=== PATIENT | female | born 2000 | race Caucasian/White ===

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

== ENCOUNTER → 2021-03-04 | Outpatient (CLI) | payer OTHER ==
--- NOTE | 2021-03-04 12:08 | USB ---
Reason for exam: clinical finding. History: Family history of breast cancer in maternal aunt at age 20. Indicated problem(s): pain in the left breast. Physical Findings: Nurse Summary: Patient states started Depo shot November 2019, developed left breast lump bruising which went away, not left breast pain x 2 months, upper outer quadrant, constant, sharp (nurse TM). US Breast LT Left complete breast ultrasound includes all four quadrants, the retroareolar region and axilla. Finding demonstrates no cystic or solid lesion seen. These results were verbally communicated with the patient and result sheet given to the patient on 03/04/21. ASSESSMENT: Negative, BI-RAD 1 RECOMMENDATION: Routine screening mammogram of both breasts at age 41. Manage patient on a clinical basis.
== END | disposition home or self-care (01) ==
LOC: RADUSWWP 09:30
PROVIDERS: ATTEND Family Medicine
DX: N64.4 Mastodynia (principal)

== ENCOUNTER 2021-07-28 16:06 | Emergency (ER) | payer OTHER ==
[2021-07-28 16:21] VITALS: BP 117/75; PULSE 88; RESP 18; TEMP 98.3
[2021-07-28 17:08] LABS: Appearance,Urine Cloudy (Clear); Bacteria,Urine Rare /hpf; Bilirubin,Urine Negative (Negative); Blood,Urine Negative (Negative); Calcium Oxalate Crystals,Urine Moderate /hpf; Color,Urine Yellow; Glucose,Urine (UA) Negative (Negative); Ketones,Urine Negative (Negative); Leukocyte Esterase,Urine Small (Negative); Mucus,Urine Rare /hpf; Nitrite,Urine Negative (Negative); Protein,Urine Negative (Negative); RBC,Urine 2 /hpf (0-5); Specific Gravity,Urine 1.022 (1.001-1.035); Squamous Epithelial Cell,Urine 8 /hpf (0-4); Urobilinogen,Urine <2.0 mg/dL (<2.0); WBC,Urine 5 /hpf (0-5)
[2021-07-28] MEDS ORDERED: CEPHALEXIN 500 MG CAP PO STA (17:18)
--- NOTE | 2021-07-28 17:29 | ED ---
General Adult HPI - General Chief complaint: Fall Stated complaint: 17 wks fall/abd pain Time Seen by Provider: 07/28/21 16:31 Source: patient, RN notes reviewed, old records reviewed Mode of arrival: ambulatory Limitations: no limitations - History of Present Illness Initial comments: Patient is a 21-year-old female with past medical history remarkable for being approximately 17 weeks presents emergency Department after a fall yesterday. Patient states that she fell at home, did not hit her head. She no injuries at time. She was a little sore in the left side of her abdomen, there is reproducible on palpation mostly along the wall. She states this is overall improving, however she is concerned regarding her baby's health. She still feeling the baby move. She denies any vaginal discharge or bleeding. Endorses some dysuria but denies hematuria. Denies any chest pain, shortness breath, lightheadedness, weakness. She is no other acute complaints at this time. She states she currently only has pain when she urinates, describes it as dysuria. She is receiving care and is on vitamins. She is no other acute complaint at this time. She is seeking an ultrasound to ensure that her baby is okay. - Related Data Home Medications Medication Instructions Recorded Confirmed Cholecalciferol [Vitamin D3 (25 50 mcg PO DAILY 07/28/21 07/28/21 Mcg = 1000 Iu)] Oyi-Zkxd-Teboo Acid 1 cap PO DAILY 07/28/21 07/28/21 [-U Capsule (formulary)] Previous Rx's Medication Instructions Recorded Cephalexin [Keflex] 500 mg PO Q12HR 5 Days #10 cap 07/28/21 Allergies Allergy/AdvReac Type Severity Reaction Status Date / Time ketorolac [From Toradol] Allergy Unknown Verified 07/28/21 16:59 haloperidol [From Haldol] AdvReac pt states Verified 07/28/21 16:59 "seizure like activity" Review of Systems ROS Statement: Those systems with pertinent positive or pertinent negative responses have been documented in the HPI. Review of Systems: CONST: Denies fever EYES: Denies blurry vision ENT: Denies nasal congestion C/V: Denies Chest pain RESP: Denies shortness of breath GI: Denies abdominal pain : Endorses dysuria SKIN: Denies rash. MSK: Denies joint pain. NEURO: Denies headache ROS Other: All systems not noted in ROS Statement are negative. Past Medical History Past Medical History: No Reported History Additional Past Medical History / Comment(s): ADHD History of Any Multi-Drug Resistant Organisms: None Reported Past Surgical History: No Surgical Hx Reported Additional Past Anesthesia/Blood Transfusion Reaction / Comment(s): NEVER HAD Past Psychological History: ADD/ADHD Smoking Status: Current every day smoker Past Alcohol Use History: None Reported Past Drug Use History: None Reported - Past Family History Father History Unknown: Yes Family Medical History: Blood Disorder, Coronary Artery Disease (CAD), Hypertension, Osteoarthritis (OA), Seizure Disorder Mother Family Medical History: Hypertension Additional Family Medical History / Comment(s): "hole in uterus" General Exam - General Exam Comments Initial Comments: General: Appears in no acute distress. HEAD: Normal with no signs of head trauma. EYES: PERRLA, EOMI, conjunctiva normal, no discharge. ENT: Hearing grossly intact, normal oropharynx. RESPIRATORY: Clear breath sounds bilaterally. No wheezes, rales, or rhonchi. C/V: Regular rate and rhythm. S1 and S2 auscultated, no edema, peripheral pulses 2+ and intact throughout ABD: Abd is soft, nontender, nondistended EXT: Normal range of motion, no obvious deformity SKIN: No rashes or lesions observed on exposed skin. NEURO: Alert and oriented 4. Limitations: no limitations Course Vital Signs 07/28/21 16:17 Temperature 98.3 F Pulse Rate 88 Respiratory 18 Rate Blood Pressure 117/75 O2 Sat by Pulse 97 Oximetry Procedures - Procedures Initial comment: On encounter ultrasound was obtained by myself. Transabdominal pelvic ultrasound was done. Was remarkable for definitive intrauterine . Gestational age is not calculated. heart rate is 161 bpm and within normal limits. Positive movements. No free intra-abdominal fluid is appreciated. Ovaries are not visualized. Images were not printed due to dysfunction with the ultrasound printer. Medical Decision Making - Medical Decision Making Based on the patient's presentation and physical exam, I believe she had an atraumatic fall yesterday, however is complaining of dysuria and is requesting evaluation of her child, she is 17 weeks . She has been feeling movements, however we will obtain a bedside ultrasound performed by myself. We'll also obtain a urinalysis that she is having dysuria. Patient was in agreement this plan. She is no vaginal bleeding or other symptoms at this time and I do not believe that further imaging or laboratory studies are associated. She was in agreement this plan. Patient's urinalysis revealed a small amount of leukocyte esterase as well as some WBCs and it is cloudy. It is a contaminated catch but she is symptomatic therefore we will treat it. She'll be given 500 mg of Keflex here in the department and a prescription for Keflex 500 mg twice a day. Tyjud-qb-zcwe ultrasound was performed by myself. Transabdominal ultrasound of the uterus was completed and revealed a definitive intrauterine with a heart rate of 161 bpm. The ultrasound was not working for printing copies of my images. Should the images with the patient she was really. At this time patient is still asymptomatic. She received her antibiotic. I believe it is safe to be discharged home with close follow-up with her CODING COMPLIANCE MANAGER. She was in agreement this plan. I will provide the patient with a prescription for Keflex 500 mg twice a day for 5 days. I instructed the patient to follow up with their PCP in the next 3 days. I explained that the patient should return to the emergency department if they experience any worsening symptoms. Strict return precautions were discussed with the patient. The patient expressed understanding of these instructions. I answered all questions that the patient had. The patient was discharged home in good condition with their prescriptions and follow up information. - Lab Data Lab Results 07/28/21 Range/Units 16:49 Urine Color Yellow Urine Appearance Cloudy H (Clear) Urine pH 6.0 (5.0-8.0) Ur Specific [place] 1.022 (1.001-1.035) Urine Protein Negative (Negative) Urine Glucose (UA) Negative (Negative) Urine Ketones Negative (Negative) Urine Blood Negative (Negative) Urine Nitrite Negative (Negative) Urine Bilirubin Negative (Negative) Urine Urobilinogen <2.0 (<2.0) mg/dL Ur Leukocyte Esterase Small H (Negative) Urine RBC 2 (0-5) /hpf Urine WBC 5 (0-5) /hpf Ur Squamous Epith Cells 8 H (0-4) /hpf Calcium Oxalate Crystal Moderate H (None) /hpf Urine Bacteria Rare H (None) /hpf Urine Mucus Rare H (None) /hpf Disposition Clinical Impression: UTI (urinary tract infection), Musculoskeletal pain Disposition: HOME SELF-CARE Condition: Good Prescriptions: Cephalexin [Keflex] 500 mg PO Q12HR 5 Days #10 cap Is patient prescribed a controlled substance at d/c from ED?: No Referrals: Patricia Almeida MD [Primary Care Provider] - 1-2 days
== END 2021-07-28 17:45 | disposition home or self-care (01) ==
LOC: EC 16:06
DX: O23.42 Unspecified infection of urinary tract in pregnancy, second trimester (principal); O99.332 Smoking (tobacco) complicating pregnancy, second trimester; F17.200 Nicotine dependence, unspecified, uncomplicated; Z3A.17 17 weeks gestation of pregnancy; Z82.49 Family history of ischemic heart disease and other diseases of the circulatory system; Z88.8 Allergy status to other drugs, medicaments and biological substances; W19.XXXA Unspecified fall, initial encounter; Y92.009 Unspecified place in unspecified non-institutional (private) residence as the place of occurrence of the external cause
CPT/HCPCS: 81001; 99284

== ENCOUNTER 2021-10-24 16:02 | Emergency (ER) | payer OTHER ==
--- NOTE | 2021-10-24 17:32 | ED ---
General Adult HPI - General Stated complaint: chest pain, sore throat - History of Present Illness Initial comments: Arabella is a 21yo F 30w gestation who presents to the Emergency Department today with a complaint of sore throat, cough and chest pain. Symptoms began when she woke up this morning. Patient reports pain 6 out of 10 in the chest, throughout the entire chest. Patient was vaccinated for COVID. She does smoke cigarettes. - Related Data Home Medications Medication Instructions Recorded Confirmed Cholecalciferol [Vitamin D3 (25 50 mcg PO DAILY 07/28/21 07/28/21 Mcg = 1000 Iu)] Ecl-Bwmo-Rpyjh Acid 1 cap PO DAILY 07/28/21 07/28/21 [-U Capsule (formulary)] Previous Rx's Medication Instructions Recorded Cephalexin [Keflex] 500 mg PO Q12HR 5 Days #10 cap 07/28/21 Allergies Allergy/AdvReac Type Severity Reaction Status Date / Time ketorolac [From Toradol] Allergy Unknown Verified 10/24/21 17:31 haloperidol [From Haldol] AdvReac pt states Verified 10/24/21 17:31 "seizure like activity" Review of Systems ROS Statement: Those systems with pertinent positive or pertinent negative responses have been documented in the HPI. ROS Other: All systems not noted in ROS Statement are negative. Past Medical History Past Medical History: No Reported History Additional Past Medical History / Comment(s): ADHD History of Any Multi-Drug Resistant Organisms: None Reported Past Surgical History: No Surgical Hx Reported Additional Past Anesthesia/Blood Transfusion Reaction / Comment(s): NEVER HAD Past Psychological History: ADD/ADHD Smoking Status: Current every day smoker Past Alcohol Use History: None Reported Past Drug Use History: None Reported - Past Family History Father History Unknown: Yes Family Medical History: Blood Disorder, Coronary Artery Disease (CAD), Hypertension, Osteoarthritis (OA), Seizure Disorder Mother Family Medical History: Hypertension Additional Family Medical History / Comment(s): "hole in uterus" General Exam - General Exam Comments Initial Comments: Physical Exam GENERAL: Patient is well-developed and well-nourished. Patient is nontoxic and well-hydrated and is in no distress. HENT: Normocephalic, Atraumatic. Throat is nonerythematous there is no exudates EYES: PERRL, EOMI PULMONARY: Unlabored respirations. Clear to auscultation bilaterally CARDIOVASCULAR: RRR Warm and well perfused extremities ABDOMEN: Gravid abdomen SKIN: No rashes or bruising : Deferred NEUROLOGIC: Alert and oriented Normal speech Normal gait MUSCULOSKELETAL: Moving all extremities with no apparent injury PSYCHIATRIC: No SI/HI Course Vital Signs 10/24/21 17:31 Temperature 98.7 F Pulse Rate 83 Respiratory 20 Rate Blood Pressure 123/61 O2 Sat by Pulse 97 Oximetry EKG Findings - EKG Comments: EKG Findings:: EKG was obtained due to complaint of chest pressure, EKG was obtained 1814 rate is 84 rhythm is sinus there is normal axis, normal intervals, OK 112, QRS 86, QTC is 425 there are no acute ST elevations or depressions there is no evidence of acute ischemia or infarction. Of note and as one every 3 T3 pattern was observed and could be related to . Medical Decision Making - Medical Decision Making Patient was seen and evaluated in the triage bay, patient was tested for COVID- 19 and tested negative, EKG was nonischemic, lung sounds were clear and the patient was not hypoxic or tachycardic therefore due to we chose not to pursue a chest x-ray. Patient is waiting in the emergency room waiting room when she returned to triage bay to say she can no longer wait and would like to be discharged. Patient did agree testing for influenza but otherwise was unwilling to stay in the emergency department. At this time patient has stable vital signs, no tachycardia and no hypoxia no fever and is stable for discharge home. - Lab Data Lab Results 10/24/21 Range/Units 17:35 Coronavirus (PCR) Not Detected (Not Detectd) Disposition Clinical Impression: Viral URI with cough Disposition: HOME SELF-CARE Condition: Stable Additional Instructions: Return to the ER for any worsening symptoms Is patient prescribed a controlled substance at d/c from ED?: No Referrals: Guy Carpio DO [Primary Care Provider] - 1-2 days
[2021-10-24 17:35] VITALS: BP 123/61; PULSE 83; RESP 20; TEMP 98.7
== END 2021-10-24 19:04 | disposition home or self-care (01) ==
LOC: EC 16:02
DX: O99.413 Diseases of the circulatory system complicating pregnancy, third trimester (principal); O99.513 Diseases of the respiratory system complicating pregnancy, third trimester; R07.9 Chest pain, unspecified; J06.9 Acute upper respiratory infection, unspecified; F90.9 Attention-deficit hyperactivity disorder, unspecified type; F17.200 Nicotine dependence, unspecified, uncomplicated; Z3A.30 30 weeks gestation of pregnancy; Z88.1 Allergy status to other antibiotic agents; Z20.822 Contact with and (suspected) exposure to COVID-19
CPT/HCPCS: 87502; 87635; 93005; 99285

== ENCOUNTER 2022-01-06 03:09 | Inpatient (IN) | payer OTHER ==
[2022-01-06] MEDS ORDERED: METHYLERGONOVINE 0.2 MG/ML 1 ML AMP IM PRN (03:58)
[2022-01-06] MEDS ORDERED: CARBOPROST TROMETHAMINE 250 MCG/ML 1 ML AMP IM PRN (03:58)
[2022-01-06] MEDS ORDERED: LIDOCAINE 1% (PF) 10 MG/ML (30 ML SDV) SQ PRN (03:58)
[2022-01-06] MEDS ORDERED: OXYTOCIN 10 UNIT/ML 1 ML VIAL IM PRN (03:58)
[2022-01-06] MEDS ORDERED: TERBUTALINE 1 MG/ML VIAL SQ PRN (03:58)
[2022-01-06] MEDS ORDERED: LACTATED RINGERS 1,000 ML IV SCH ×4 (04:00→10:15)
[2022-01-06] MEDS ORDERED: PENICILLIN G POTASSIUM 5,000,000 UNIT in DEXTROSE 5% IN WATER 100 ML IVPB ONE ×2 (04:00)
[2022-01-06 04:43] LABS: Glucose,Whole Blood 126 mg/dL (75-99)
[2022-01-06 04:51] LABS: Basophils # (A) 0.1 k/uL (0-0.2); Basophils % (A) 0 %; Eosinophils % (A) 0 %; HCT 38.9 % (34.0-46.0); HGB 13.2 gm/dL (11.4-16.0); Lymphocytes % (A) 6 %; MCH 32.9 pg (25.0-35.0); MCHC 33.8 g/dL (31.0-37.0); MCV 97.2 fL (80.0-100.0); Mean Platelet Volume 8.8; Monocytes # (A) 0.4 k/uL (0-1.0); Monocytes % (A) 3 %; Neutrophils # (A) 14.7 k/uL (1.3-7.7); Neutrophils % (A) 90 %; Platelet Count 204 k/uL (150-450); RBC 4.01 m/uL (3.80-5.40); RDW 13.2 % (11.5-15.5); WBC 16.3 k/uL (4.0-11.0)
[2022-01-06 05:10] LABS: Amphetamine Screen,Urine Not Detected (NotDetected); Barbiturate Screen,Urine Not Detected (NotDetected); Benzodiazepines Screen,Urine Not Detected (NotDetected); Cocaine Screen,Urine Not Detected (NotDetected); Methadone Screen, Urine Not Detected (NotDetected); Opiate Screen,Urine Not Detected (NotDetected); Oxycodone Screen, Urine Not Detected (NotDetected); Phencyclidine Screen,Urine Not Detected (NotDetected); Tricyclic Antidepressant,Urine Not Detected (NotDetected); Urn Cannabinoid Scrn Detected (NotDetected)
[2022-01-06] MEDS ORDERED: fentaNYL (PF) 50 MCG/ML 5 ML AMP ONE (05:36)
[2022-01-06] MEDS ORDERED: SODIUM CHLORIDE 0.9% 100 ML BAG ONE (05:36)
[2022-01-06] MEDS ORDERED: ROPIVACAINE 5MG/ML 20ML VIAL ONE (05:36)
--- NOTE | 2022-01-06 06:49 | P.HPOB ---
History of Present Illness H&P Date: 01/06/22 Chief Complaint: Spontaneous rupture of membranes at 40-4/7 This is a 29-year-old 2 para 0010 woman with a due date of 01/02/2022 based on first trimester ultrasound who presents post dates with spontaneous rupture of membranes and active labor. She receives care at [facility] and was seen by them a couple of hours prior to presentation here and was sent home. She presents to this hospital having spontaneous rupture of membranes at home of clear fluid. She reports her has been complicated by gestational diabetes, diet controlled. She reports her blood sugars on typically run less than 130s. She's been followed in the office antenatally with NSTs and biophysical profiles however no recent growth ultrasound. Upon initial evaluation here the patient was found on to have rupture of membranes and was 3+ centimeters dilated and regularly adelina. She was therefore admitted in labor. Patient reports she was told she is group B strep positive by her regular physician. Obstetric history significant for spontaneous miscarriage in the past. Review of Systems All systems: negative Past Medical History Past Medical History: No Reported History Additional Past Medical History / Comment(s): ADHD History of Any Multi-Drug Resistant Organisms: None Reported Past Surgical History: No Surgical Hx Reported Past Anesthesia/Blood Transfusion Reactions: Unable to Obtain Additional Past Anesthesia/Blood Transfusion Reaction / Comment(s): NEVER HAD Past Psychological History: ADD/ADHD Smoking Status: Current every day smoker Past Alcohol Use History: None Reported Past Drug Use History: None Reported - Past Family History Father History Unknown: Yes Family Medical History: Blood Disorder, Coronary Artery Disease (CAD), Hypertension, Osteoarthritis (OA), Seizure Disorder Mother Family Medical History: Hypertension Additional Family Medical History / Comment(s): "hole in uterus" Medications and Allergies Home Medications Medication Instructions Recorded Confirmed Type Cholecalciferol [Vitamin D3 (25 50 mcg PO DAILY 07/28/21 01/06/22 History Mcg = 1000 Iu)] Qki-Ggnb-Uvgjt Acid 1 cap PO DAILY 07/28/21 01/06/22 History [-U Capsule (formulary)] Allergies Allergy/AdvReac Type Severity Reaction Status Date / Time ketorolac [From Toradol] Allergy Unknown Verified 01/06/22 03:20 haloperidol [From Haldol] AdvReac pt states Verified 01/06/22 03:20 "seizure like activity" Exam Vital Signs Temp Pulse Resp BP Pulse Ox 01/06/22 03:57 96.0 F L 89 19 143/82 99 01/06/22 03:55 96.0 F L 89 19 143/82 99 Intake and Output 01/05/22 01/05/22 01/06/22 14:59 22:59 06:59 Other: # Voids 1 Weight 96.116 kg Upon my initial evaluation patient is resting comfortably in bed with an epidural anesthetic in place. Per recent RN exam the patient is 9+ centimeters dilated. heart tones are category 1 with good variability and occasional early appearing decelerations with contractions. Results Result Diagrams: 01/06/22 04:20 Abnormal Lab Results - Last 24 Hours (Table) 01/06/22 01/06/22 01/06/22 Range/Units 04:20 04:20 04:41 WBC 16.3 H (4.0-11.0) k/uL Neutrophils # 14.7 H (1.3-7.7) k/uL POC Glucose (mg/dL) 126 H (75-99) mg/dL U Marijuana (THC) Screen Detected H (NotDetected) Assessment and Plan (1) Post-dates Current Visit: Yes Status: Acute Code(s): O48.0 - POST-TERM SNOMED Code(s): 71614530 (2) GBS (group B Streptococcus carrier), +RV culture, currently Current Visit: Yes Status: Acute Code(s): O99.820 - STREPTOCOCCUS B CARRIER STATE COMPLICATING SNOMED Code(s): 8469012070631 (3) Spontaneous rupture of membranes Current Visit: Yes Status: Acute Code(s): JAS6665 - SNOMED Code(s): 1 51621923 (4) Spontaneous onset of labor Current Visit: Yes Status: Acute Code(s): XTL5144 - SNOMED Code(s): 70118360 (5) Gestational diabetes Current Visit: Yes Status: Acute Code(s): O24.419 - GESTATIONAL DIABETES MELLITUS IN , UNSP CONTROL SNOMED Code(s): 01561232 Plan: 21-year-old 2 para 0010 woman who presents at 40-4/7 weeks gestation in spontaneous active labor with rupture of membranes. care received at outside facility. status is currently reassuring by external monit oring. Group B strep prophylactic antibiotics have been initiated. Review of records show blood type AB+. Anticipate spontaneous vaginal delivery.
--- NOTE | 2022-01-06 07:31 | P.MSEPDOC ---
Presenting Problems - Arrival Data Date of Arrival on Unit: 01/06/22 Time of Arrival on Unit: 03:09 Mode of Transport: Wheelchair - Complaint OB-Reason for Admission/Chief Complaint: Possible Onset of Labor, Rule Out SROM Comment: Pt presents to triage with c/o contx that have been going on for the last day, approx 5 min apart. Pt states she normally sees Dr. Buckley from [facility] and that she was in their triage for contx earlier tonight and sent home. Pt states she felt a gush of fluid 20 minutes prior to coming into triage. Medical History - Information : 2 Para: 0 Term: 0 : 0 Abortions: Spontaneous or Elective: 1 Number of Living Children: 0 - Gestational Age Gestational Age by AIMEE (wks/days): 40 Weeks and 4 Days - History Complications: GBS+ Review of Systems - Review of Systems Constitutional: No problems Breast: No problems ENT: No problems Cardiovascular: No problems Respiratory: No problems Gastrointestinal: No problems Genitourinary: No problems Musculoskeletal: No problems Neurological: No problems Skin: No problems Vital Signs - Temperature Temperature: 96.0 F Temperature Source: Temporal Artery Scan - Pulse Pulse Oximetery Pulse Rate: 89 Pulse Assessment Method: Pulse Oximetry - Respirations Respiratory Rate: 19 Oxygen Delivery Method: Room Air O2 Sat by Pulse Oximetry: 99 - Blood Pressure Right Arm Blood Pressure: 143/82 Blood Pressure Mean: 102 Blood Pressure Source: Automatic Cuff Medical Screen Scoring - Cervical Exam Dilation (cm): 3 Effacement (%): 80 Station: -2 Membranes: Ruptured - Uterine Contractions Intensity: Strong Resting: Soft to palpation - Assessment - Baby A Baseline FHR: 110 Heart Rate - NICHD Category: Category I (Normal) Physician Notification - Physician Notified Physician Notified Date: 01/06/22 Physician Notified Time: 03:55 Physician: Carolee Mckay Order Received: Yes - Notification Comment Comment: Orders received from Dr. Mckay to admit patient for labor, start. antibiotics for GBS positive, stadol 1 mg Q2H PRN for labor pain and epidural placement whenever patient requests one. Maternal Triage Index - Maternal Triage Index Presenting for scheduled procedure w/no complaint: No - Stat/Priority 1 Stat Priority 1: No - Urgent/Priority 2 Urgent Priority 2: No - Prompt/Priority 3 Prompt Priority 3: No - Non-Urgent/Priority 4 Non-Urgent Priority 4: Yes Criteria Met for Priority 4: > 37 weeks early labor signs and c/o SROM/leaking Disposition - Disposition OB Disposition: Admit, LDRP Suite Transferred to:: Suite 12 I agree with the RN Medical Screening Exam: Yes Case reviewed; plan agreed upon as documented in EMR&OBIX.: Yes Diagnosis: postdates
[2022-01-06] MEDS ORDERED: PENICILLIN G POTASSIUM 2,500,000 UNIT in DEXTROSE 5% IN WATER 100 ML IVPB SCH ×2 (08:00)
[2022-01-06] MEDS ORDERED: CITRIC ACID-SODIUM CITRATE 15 ML CUP PO ONE (08:49)
[2022-01-06] MEDS ORDERED: ONDANSETRON 4 MG/2 ML VIAL ONE (08:58)
[2022-01-06] MEDS ORDERED: DEXAMETHASONE SOD PHOSPHATE 4 MG/ML 1 ML VIAL ONE (08:58)
[2022-01-06] MEDS ORDERED: OXYTOCIN 30 UNITS/500 ML NS BAG IV ONE (08:58)
[2022-01-06] MEDS ORDERED: fentaNYL (PF) 50 MCG/ML 2 ML AMP ONE (08:58)
[2022-01-06] MEDS ORDERED: NALOXONE 0.4 MG/ML 1 ML VIAL IV PRN (10:09)
[2022-01-06] MEDS ORDERED: diphenhydrAMINE 50 MG CAP PO PRN (10:09)
[2022-01-06] MEDS ORDERED: METOCLOPRAMIDE 5 MG/ML 2 ML VIAL IVP PRN (10:09)
[2022-01-06] MEDS ORDERED: diphenhydrAMINE 25 MG CAP PO PRN (10:09)
[2022-01-06] MEDS ORDERED: HYDROmorphone 1 MG/ML 1 ML SYRINGE IVP PRN (10:09)
[2022-01-06] MEDS ORDERED: diphenhydrAMINE 50 MG/ML 1 ML VIAL IVP PRN ×2 (10:09)
[2022-01-06] MEDS ORDERED: ONDANSETRON 4 MG/2 ML VIAL IVP PRN (10:09)
[2022-01-06] MEDS ORDERED: SIMETHICONE 80 MG CHEWABLE PO PRN (10:09)
[2022-01-06] MEDS ORDERED: ZOLPIDEM 5 MG TAB PO PRN (10:09)
--- NOTE | 2022-01-06 10:09 | P.OP ---
Date of Procedure: 01/06/22 Preoperative Diagnosis: Postdates Spontaneous rupture of membranes Gestational diabetes Group B strep positive Arrestive descent and dilatation Category 2 heart tones Postoperative Diagnosis: Same plus occiput posterior position Procedure(s) Performed: Primary low transverse section Anesthesia: epidural Surgeon: Carolee Mckay Senior System Operator #1: Jaya Urbina Estimated Blood Loss (ml): 480 IV fluids (ml): 1,400 Urine output (ml): 400 Pathology: none sent Condition: stable Disposition: floor Indications for Procedure: This is a 21-year-old 2 para 0010 woman who presented on having received care at an [facility] for spontaneous rupture of membranes at 40-4/7 weeks' gestation. Rupture of membranes was at 02 50, clear. Following admission she was initially 3 cm dilated. She had rapid progression of the first stage of labor and received an epidural anesthetic. She was 9+ centimeters dilated at 6 AM. She had category 2 heart tones with good variability however intermittent episodes of variable and early appearing heart rate decelerations. She remains 9+ centimeters dilated and Pitocin augmentation was initiated. After 2-1/2 hours the there was no advancement to complete dilation and malpresentation was suspected on exam. She continued to have category 2 heart tones. With the persistence of the heart rate tracing and no further dilation and descent patient and her total was held and the need for expedited delivery was discussed the patient and the father of the baby. It was our clinical recommendation to proceed with delivery after questions were answered and the patient agrees to proceed. Risks were reviewed including bleeding, transfusion, infection, injury to and or maternal structures including bladder, bowel, uterus, ureters and/or other intrapelvic or abdominal structures. Patient understands these risks. Preoperative antibiotics were given. Operative Findings: Male infant in the direct occiput posterior position deeply engaged in the maternal pelvis. Apgars 9 at 1 minute and 9 at 5 minutes weighing 6 lbs. 0 oz., 2710 g. Normal-appearing bilateral fallopian tubes and ovaries. Intact, three- vessel cord placenta. Procedure Description of Procedure: The patient's epidural anesthetic was bolused. She was transported the operating room where she was positioned, prepped and draped in the dorsal supine position with a leftward tilt. heart tones in the operating room where in the 80s to 90s. Anesthetic was confirmed adequate and a timeout procedure was undertaken. A low transverse skin incision was made and was carried down to the underlying fascia sharply and with the electrocautery. Fascia incised in the midline and extended bilaterally. Inferior and superior aspects of the fascial incision elevated and the underlying rectus muscles dissected off sharply. Rectus muscles bluntly in the midline and the peritoneum was identified identified and tented up and entered sharply. Peritoneal incision was extended inferiorly and superiorly with good visualization the bladder. Bladder blade was placed. Vesicouterine peritoneum was identified, tented up and entered sharply. Bladder flap was created. Bladder blade was replaced and a low transverse uterine incision was made and carried down to the underlying amniotic membrane sharply. Membranes were ruptured and clear fluid was noted. Uterine incision was extended bilaterally. The infant was noted to be very deeply engaged in the maternal pelvis. Gentle upward traction didn't deliver the head to the level of the incision. Head was then delivered from the incision from the direct occiput posterior position. The rest the was then delivered onto the field. Nose and mouth were bulb suctioned and the was taken to the warmer after the cord was clamped and cut. Intact, three-vessel cord placenta was manually removed. Uterus was exteriorized. Uterine incision was delineated with Fernandez clamps and there was an extension of the right side of the incision down towards the level of the incision. The base of this extension was easily visualized and incision was then closed in a running locked fashion with 0 Vicryl suture followed by second imbricating layer of the same. Additional [id number] suture placed in the midline for hemostasis. There was some generalized small amounts of oozing along the incision. This was addressed with electrocautery and then the Surgicel powder was placed along the entire incision after the uterus was returned to the abdomen. The incision made hemostatic. The rectus muscles, fascial edges and peritoneal edges were inspected and noted to be hemostatic. The gutters had been cleared of all clot and debris. Rectus muscles and peritoneum reapproximated in the midline. Remaining Surgicel powder was placed on the and one area of the rectus muscles were there was some mild oozing. Hemostasis was noted. Fascia was then closed in a running fashion with 0 Vicryl suture. Subcutaneous tissues copiously suction irrigated. Subcu cutaneous tissue reapproximated with 3-0 chromic. Skin closed subcutaneously with 4-0 Vicryl. All counts reported to me as correct by the operating staff throughout the procedure and at the termination of the procedure. The patient was transported to recovery area in good condition.
[2022-01-06] MEDS ORDERED: OXYTOCIN 30 UNITS/500 ML NS 30 UNIT in SALINE 1 500ML.BAG IV SCH (10:15)
[2022-01-06] MEDS: ACETAMINOPHEN IV (For NPO) 1,000 MG in EMPTY BAG 1 BAG IVPB SCH (11:32)
[2022-01-06] MEDS: ACETAMINOPHEN TAB 500 MG TAB PO SCH ×2 (13:53→18:01)
[2022-01-06] MEDS: SENNOSIDES-DOCUSATE SODIUM 1 EACH TAB PO SCH (20:07)
[2022-01-07] MEDS: ACETAMINOPHEN IV (For NPO) 1,000 MG in EMPTY BAG 1 BAG IVPB SCH (01:39)
[2022-01-07] MEDS: ACETAMINOPHEN TAB 500 MG TAB PO SCH ×3 (06:19→23:07)
[2022-01-07 08:08] LABS: Basophils % (A) 0 %; Eosinophils % (A) 0 %; HCT 34.1 % (34.0-46.0); HGB 11.5 gm/dL (11.4-16.0); Lymphocytes # (A) 2.1 k/uL (1.0-4.8); Lymphocytes % (A) 16 %; MCHC 33.8 g/dL (31.0-37.0); MCV 97.8 fL (80.0-100.0); Mean Platelet Volume 9.7; Monocytes # (A) 0.6 k/uL (0-1.0); Monocytes % (A) 4 %; Neutrophils # (A) 10.5 k/uL (1.3-7.7); Neutrophils % (A) 79 %; Platelet Count 151 k/uL (150-450); RBC 3.49 m/uL (3.80-5.40); RDW 13.5 % (11.5-15.5); WBC 13.3 k/uL (4.0-11.0)
--- NOTE | 2022-01-07 08:13 | P.PNOBGPC ---
Subjective - Subjective Principal diagnosis: Postop day 1, primary Interval history: Patient is doing well this morning. She is ambulating and voiding without difficulty. She states her lochia is minimal. She is bottle feeding. She denies concerns. Patient reports: Reports appetite normal, Reports voiding normally, Reports pain well controlled, Reports ambulating normally [place]: doing well, bottle feeding Objective - Vital Signs Latest vital signs: Vital Signs Temp Pulse Resp BP Pulse Ox 01/07/22 04:00 98.6 F 81 16 114/62 97 01/07/22 00:00 97.9 F 85 17 129/68 95 01/06/22 20:00 98.6 F 72 15 116/75 98 01/06/22 16:00 98.0 F 74 16 129/73 97 01/06/22 12:00 98.1 F 85 14 135/64 97 01/06/22 11:30 88 14 154/67 96 01/06/22 11:00 88 14 118/78 95 01/06/22 10:45 98.8 F 85 14 149/68 97 01/06/22 10:30 95 14 139/72 97 01/06/22 10:15 85 14 132/66 97 01/06/22 10:00 98.3 F 103 H 14 110/65 98 Intake and Output 01/06/22 01/07/22 01/07/22 22:59 06:59 14:59 Intake Total 720 Output Total 900 800 Balance -180 -800 Intake: Oral 720 Output: Urine 900 800 Other: # Voids 2 - Exam Extremities: Present: normal, edema Abdomen: Present: normal appearance, soft Incision: Present: normal, dry, intact Uterus: Present: normal, firm - Labs Labs: Abnormal Lab Results - Last 24 Hours (Table) 01/07/22 Range/Units 07:51 WBC 13.3 H (4.0-11.0) k/uL RBC 3.49 L (3.80-5.40) m/uL Neutrophils # 10.5 H (1.3-7.7) k/uL Assessment and Plan (1) S/P section Current Visit: Yes Status: Acute Code(s): Z98.891 - HISTORY OF UTERINE SCAR FROM PREVIOUS SURGERY SNOMED Code(s): 195898345 (2) Arrest of dilation, delivered, current hospitalization Current Visit: Yes Status: Acute Code(s): O62.1 - SECONDARY UTERINE INERTIA SNOMED Code(s): 42418385 (3) Arrest of descent, delivered, current hospitalization Current Visit: Yes Status: Acute Code(s): O62.1 - SECONDARY UTERINE INERTIA SNOMED Code(s): 44876212 (4) Occiput posterior presentation of fetus Current Visit: Yes Status: Acute Code(s): O64.0XX0 - OBSTRUCTED LABOR DUE TO INCMPL ROTATION OF HEAD, UNSP SNOMED Code(s): 98674366 (5) GBS (group B Streptococcus carrier), +RV culture, currently Current Visit: Yes Status: Acute Code(s): O99.820 - STREPTOCOCCUS B CARRIER STATE COMPLICATING SNOMED Code(s): 0518432860851 (6) Gestational diabetes Current Visit: Yes Status: Acute Code(s): O24.419 - GESTATIONAL DIABETES MELLITUS IN , UNSP CONTROL SNOMED Code(s): 55326356 (7) Post-dates Current Visit: Yes Status: Acute Code(s): O48.0 - POST-TERM SNOMED Code(s): 30647985 (8) Spontaneous onset of labor Current Visit: Yes Status: Acute Code(s): UPA9099 - SNOMED Code(s): 45221475 (9) Spontaneous rupture of membranes Current Visit: Yes Status: Acute Code(s): IPI5175 - SNOMED Code(s): 843454285 Plan: 21-year-old 1 now para 1 status post primary for arrest of descent and dilation, occiput posterior presentation. Patient is doing well this morning. Plan to continue routine postoperative care, anticipate discharge home tomorrow.
[2022-01-07] MEDS: SENNOSIDES-DOCUSATE SODIUM 1 EACH TAB PO SCH ×2 (11:34→23:08)
[2022-01-07] MEDS: IBUPROFEN 600 MG TAB PO PRN ×2 (11:35→18:35)
--- NOTE | 2022-01-07 13:42 | P.PN ---
Progress Note - Text Date: 01/07/2022 Time: 13:21 The patient is status post section Vital signs stable VAS: 0-10 Patient has no complaints of pain. The patient incurred some minimal itching yesterday, this itching is now subsiding. Pain meds to be managed by service.
[2022-01-08 00:19] VITALS: RESP 16
[2022-01-08] MEDS: IBUPROFEN 600 MG TAB PO PRN (04:55)
[2022-01-08 07:52] VITALS: BP 126/80; PULSE 74; TEMP 98.2
--- NOTE | 2022-01-08 09:03 | P.DS ---
Providers Date of admission: 01/06/22 03:34 Expected date of discharge: 01/08/22 Attending physician: Carolee Mckay Primary care physician: Stated None - Discharge Diagnosis(es) (1) S/P section Current Visit: Yes Status: Acute (2) Arrest of dilation, delivered, current hospitalization Current Visit: Yes Status: Acute (3) Arrest of descent, delivered, current hospitalization Current Visit: Yes Status: Acute (4) Occiput posterior presentation of fetus Current Visit: Yes Status: Acute (5) GBS (group B Streptococcus carrier), +RV culture, currently Current Visit: Yes Status: Acute (6) Gestational diabetes Current Visit: Yes Status: Acute (7) Post-dates Current Visit: Yes Status: Acute (8) Spontaneous onset of labor Current Visit: Yes Status: Acute (9) Spontaneous rupture of membranes Current Visit: Yes Status: Acute Hospital Course: This is a 21-year-old 2 now para 1011 that presented to labor and delivery with complaints of spontaneous rupture of membranes at 40-4/7 weeks. Patient had been receiving care at another facility. Patient was initially noted to be 3 cm dilated, patient progressed in labor eventually becoming uncomfortable and requesting epidural placement. Epidural was placed without difficulty by the anesthesia department. Patient was noted to be 9+ centimeters around 6 AM. Patient had category heart tones with intermittent episodes of variable/early appearing heart rate decelerations. Patient was noted to remain at 9+ centimeters despite Pitocin augmentation for 2-1/2 hours. There was no advancement to complete dilation and malpresentation was suspected. Patient continued to have category 2 heart tones. Given the persistence of the heart rate tracing and no further dilation or descent patient was counseled on primary . Patient agreed and primary C- section was performed without difficulty. For full details on the please see the operative report. Patient delivered a viable male in occiput posterior presentation, weight of 6 lbs. 0 oz., Apgars of 9 and 9 at one and 5 minutes respectively. Patient's postoperative course has been uneventful. On this postoperative day #2 she is ambulating and voiding without difficulty. She is tolerating a regular diet without nausea or vomiting. She states her pain is well- controlled. Infant is doing well in addition. Patient does desire discharge home. Patient Condition at Discharge: Good Plan - Discharge Summary New Discharge Prescriptions: No Action Xsm-Pvzf-Cuewe Acid [-U Capsule (formulary)] 1 cap PO DAILY Cholecalciferol [Vitamin D3 (25 Mcg = 1000 Iu)] 50 mcg PO DAILY Discharge Medication List Cholecalciferol [Vitamin D3 (25 Mcg = 1000 Iu)] 50 mcg PO DAILY 07/28/21 [History] Uid-Ykwl-Bfitn Acid [-U Capsule (formulary)] 1 cap PO DAILY 07/28/21 [History] Follow up Appointment(s)/Referral(s): Carolee Mckay MD [STAFF PHYSICIAN] - 2 Weeks Patient Instructions/Handouts: (DC), (GEN) Discharge Disposition: HOME SELF-CARE
[2022-01-08] MEDS: ACETAMINOPHEN TAB 500 MG TAB PO SCH (10:43)
== END 2022-01-08 10:59 | disposition home or self-care (01) | DRG 788 ==
LOC: FBPOP 03:09 → 4FBP 03:34
PROVIDERS: ADMIT Obstetrics & Gynecology; ATTEND Obstetrics & Gynecology
PROC: 3E033VJ Introduction of Other Hormone into Peripheral Vein, Percutaneous Approach (ICD-10-PCS; 2022-01-06)
PROC: 4A0HXCZ Measurement of Products of Conception, Cardiac Rate, External Approach (ICD-10-PCS; 2022-01-06)
PROC: 10D00Z1 Extraction of Products of Conception, Low, Open Approach (ICD-10-PCS; principal; 2022-01-06 08:58)
DX: O32.4XX0 Maternal care for high head at term, not applicable or unspecified (principal); O76 Abnormality in fetal heart rate and rhythm complicating labor and delivery; O24.420 Gestational diabetes mellitus in childbirth, diet controlled; O48.0 Post-term pregnancy; O62.0 Primary inadequate contractions; O99.334 Smoking (tobacco) complicating childbirth; O99.73 Diseases of the skin and subcutaneous tissue complicating the puerperium; L29.9 Pruritus, unspecified; O99.344 Other mental disorders complicating childbirth; F17.210 Nicotine dependence, cigarettes, uncomplicated; F90.9 Attention-deficit hyperactivity disorder, unspecified type; O99.824 Streptococcus B carrier state complicating childbirth; Z37.0 Single live birth; Z88.8 Allergy status to other drugs, medicaments and biological substances; Z3A.40 40 weeks gestation of pregnancy
CPT/HCPCS: 80306; 84112; 85025; 86850; 86900; 86901; 87340; 99213

== ENCOUNTER → 2022-12-06 | Outpatient (CLI) | payer OTHER ==
--- NOTE | 2022-12-06 13:15 | US ---
EXAMINATION TYPE: US pelvic complete DATE OF EXAM: 12/06/2022 COMPARISON: 03/26/2017 CLINICAL HISTORY: R10.2 PELVIC PAIN. Left side pain. TECHNIQUE: Transabdominal (TA). Transabdominal sonographic images of the pelvis were acquired. Date of LMP: 11/10/2022, EXAM MEASUREMENTS: Uterus: 8.5 x 4.9 x 3.5 cm Endometrial Stripe: 0.6 cm Right Ovary: 3.4 x 2.1 x 2.0 cm Left Ovary: 3.0 x 1.7 x 1.6 cm 1. Uterus: Anteverted wnl 2. Endometrium: wnl 3. Right Ovary: wnl 4. Left Ovary: wnl 5. Bilateral Adnexa: no free fluid 6. Posterior cul-de-sac: no free fluid IMPRESSION: No discrete abnormality seen.
== END | disposition home or self-care (01) ==
LOC: RADUSWWP 12:08
PROVIDERS: ATTEND Family Medicine
DX: R10.2 Pelvic and perineal pain (principal)
CPT/HCPCS: 76856

== ENCOUNTER 2024-06-16 16:40 | Emergency (ER) | payer OTHER ==
[2024-06-16] MEDS ORDERED: LIDOCAINE VISCOUS 2% 15 ML CUP ONE (17:34)
== END 2024-06-16 18:02 | disposition home or self-care (01) ==
LOC: EC 16:40
CPT/HCPCS: 69200; 99282